=== PATIENT | female | born 1935 | race Caucasian/White ===

== ENCOUNTER → 2023-03-30 10:35 | Outpatient (REF) | payer MEDICARE, BC, SELFPAY ==
[2023-03-30 15:02] LABS: % Basophils 0.1 % (0-2); % Eosinophils 0.2 % (0-6); % Lymphocytes 3.9 % (20.5-51.1); % Monocytes 4.8 % (1.7-9.3); Absolute Immature Granulocytes 0.1 10^3/uL (0-0.05); Absolute Lymphocytes 0.3 10^3/uL (1.2-3.4); Absolute Monocytes 0.4 10^3/uL (0.1-0.6); Absolute Neutrophils 7.3 10^3/uL (1.4-6.5); Hematocrit 37.6 % (37.0-47.0); Hemoglobin 12.7 g/dL (12.0-16.0); Mean Corp Hgb Conc. 33.8 g/dL (33.0-37.0); Mean Corpuscular Hgb 32.4 pg (27.0-31.0); Mean Corpuscular Volume 95.9 fL (81.0-99.0); Mean Platelet Volume 10.2 fL (7.4-10.4); Nucleated Red Blood Cells % 0 %; Platelet Count 217 10^3/uL (130-400); Red Blood Cell Count 3.92 10^6/uL (4.20-5.40); Red Cell Dist. Width 13.4 % (11.5-14.5); White Blood Cell Count 8.1 10^3/uL (4.8-10.8)
[2023-03-30 15:12] LABS: ALT (SGPT) 18 U/L (0-35); AST (SGOT) 29 U/L (14-36); Albumin 3.3 g/dl (3.5-5.0); Alkaline Phosphatase 44 U/L (38-126); Blood Urea Nitrogen 19 mg/dl (7-17); Calcium 8.8 mg/dl (8.4-10.2); Carbon Dioxide 31 mmol/L (22-30); Chloride 100 mmol/L (98-107); Glucose 94 mg/dl (70-99); Potassium 3.9 mmol/L (3.5-5.1); Sodium 133 mmol/L (135-145); Total Bilirubin 0.8 mg/dl (0.2-1.3); Total Protein 5.1 g/dl (6.3-8.2); eGFR > 60.00
== END ==
LOC: HWRAD 10:35
PROVIDERS: ATTENDING PHYSICIAN Family Medicine
DX: J98.6 Disorders of diaphragm (principal); G70.00 Myasthenia gravis without (acute) exacerbation; R73.01 Impaired fasting glucose; E78.2 Mixed hyperlipidemia; R20.2 Paresthesia of skin; R13.13 Dysphagia, pharyngeal phase
CPT/HCPCS: 36415; 71270; 80053; 85025; Q9967

== ENCOUNTER → 2023-05-25 10:54 | Outpatient (REF) | payer MEDICARE, BC, SELFPAY ==
[2023-05-25 15:52] LABS: % Basophils 0.3 % (0-2); % Eosinophils 1.3 % (0-6); % Immature Granulocytes 0.6 % (0-0.5); % Lymphocytes 4.9 % (20.5-51.1); % Monocytes 6.1 % (1.7-9.3); % Neutrophils 86.8 % (42.2-75.2); Absolute Eosinophils 0.1 10^3/uL (0-0.7); Absolute Immature Granulocytes 0.1 10^3/uL (0-0.05); Absolute Lymphocytes 0.5 10^3/uL (1.2-3.4); Absolute Monocytes 0.6 10^3/uL (0.1-0.6); Absolute Neutrophils 8.2 10^3/uL (1.4-6.5); Hematocrit 43.6 % (37.0-47.0); Hemoglobin 14.6 g/dL (12.0-16.0); Mean Corp Hgb Conc. 33.5 g/dL (33.0-37.0); Mean Corpuscular Hgb 31.9 pg (27.0-31.0); Mean Corpuscular Volume 95.2 fL (81.0-99.0); Mean Platelet Volume 9.9 fL (7.4-10.4); Nucleated Red Blood Cells % 0 %; Platelet Count 268 10^3/uL (130-400); Red Blood Cell Count 4.58 10^6/uL (4.20-5.40); Red Cell Dist. Width 13.3 % (11.5-14.5); White Blood Cell Count 9.5 10^3/uL (4.8-10.8)
[2023-05-25 16:03] LABS: ALT (SGPT) 19 U/L (0-35); AST (SGOT) 32 U/L (14-36); Albumin 3.9 g/dl (3.5-5.0); Alkaline Phosphatase 49 U/L (38-126); Blood Urea Nitrogen 20 mg/dl (7-17); Calcium 9.3 mg/dl (8.4-10.2); Carbon Dioxide 32 mmol/L (22-30); Chloride 96 mmol/L (98-107); Glucose 89 mg/dl (70-99); Sodium 136 mmol/L (135-145); Total Bilirubin 0.8 mg/dl (0.2-1.3); eGFR 54.87
[2023-05-25 16:13] LABS: Potassium 3.4 mmol/L (3.5-5.1)
== END ==
LOC: HWWDC 10:54
PROVIDERS: ATTENDING PHYSICIAN Family Medicine
DX: Z12.31 Encounter for screening mammogram for malignant neoplasm of breast (principal); G70.00 Myasthenia gravis without (acute) exacerbation
CPT/HCPCS: 36415; 77063; 77067; 80053; 85025

== ENCOUNTER 2023-07-21 16:38 | Inpatient (IN) | payer MEDICARE, BC, SELFPAY ==
[2023-07-21] VITALS (15 sets, daily range): BP systolic 103–126; BP diastolic 52–82; BMI 21.2
[2023-07-21 10:41] LABS: % Basophils 0.2 % (0-2); % Lymphocytes 1.5 % (20.5-51.1); % Monocytes 5.7 % (1.7-9.3); % Neutrophils 91.6 % (42.2-75.2); Absolute Immature Granulocytes 0.2 10^3/uL (0-0.05); Absolute Lymphocytes 0.2 10^3/uL (1.2-3.4); Absolute Monocytes 0.9 10^3/uL (0.1-0.6); Absolute Neutrophils 15.1 10^3/uL (1.4-6.5); Hematocrit 41.7 % (37.0-47.0); Hemoglobin 13.8 g/dL (12.0-16.0); Mean Corp Hgb Conc. 33.1 g/dL (33.0-37.0); Mean Corpuscular Volume 93.7 fL (81.0-99.0); Mean Platelet Volume 10.1 fL (7.4-10.4); Nucleated Red Blood Cells % 0 %; Platelet Count 208 10^3/uL (130-400); Red Blood Cell Count 4.45 10^6/uL (4.20-5.40); White Blood Cell Count 16.5 10^3/uL (4.8-10.8)
--- NOTE | 2023-07-21 10:48 | ED.GENMED ---
History of Present Illness
<Yuly Ulloa PA-C - Last Filed: 07/21/23 11:46>
General
Chief Complaint: Breathing Problem
Source: patient
Exam Limitations: clinical condition
Time Seen by Provider: 07/21/23 10:32
Travel History
Have you had any contact with someone who has COVID-19?: No
Do you have any symptoms of coronavirus? Fever > 100 degrees, chills, cough, shortness of breath, sore throat, loss of taste or smell, muscle aches, or headache?: No
History of Present Illness
History of Present Illness:
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
here with tachpynea, cough, fever, sore throat, conjucntivitis that started 2 days ago after returning from a cruise to [facility]
she has had inc of her chronic SOB
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
also low energy and wiped out feeling
no double vision, dysphagia, difficulty swallowing
chroinc LE edema on diuretic, no CHF history
no ches tpain
Past History
<Yuly Ulloa PA-C - Last Filed: 07/21/23 11:46>
Past History
ED Past Medical History: COPD, HTN, Hypercholesterolemia, Other (Emphysema, Diverticulitis), Other (Cholelithiasis) and Other (Myasthenia gravis)
ED Past Surgical History: Appendectomy, Gynecological (oophorectomy) and Orthopedic
Social History
Tobacco: Former smoker
Alcohol: Daily (Wine 1-2 glass)
Drug: None
Personal:
Living: with family
Employment: Retired
Family History
Family History: Other (Father with COPD, mother with breast cancer)
Review of Systems
<Yuly Ulloa PA-C - Last Filed: 07/21/23 11:46>
Review of Systems
Allergies reviewed?: Yes
All Other Systems: Not applicable
Phy Exam
<Yuly Ulloa PA-C - Last Filed: 07/21/23 11:46>
Physical Exam
Physical Exam:
GENERAL: Alert tachypneic, conversational dyspnea
EYE: pupils equal and reactive
NECK: Supple
ENT: o/p clr,dry mouth
no trouble swallowing
CARDIAC: Regular rate and rhythm .
LUNGS: crackles b/l bases with faint wheezing with cough, tahcypnea, air hunger, nasal flaring mildly;
ABDOMEN: Soft, without focal tenderness, no r/g, no cvat, normal bowel sounds
NEUROLOGICAL: Alert and oriented, no focal neuro deficits
SKIN: Warm and dry, skin intact.
MUSCULOSKELETAL: moderate b/l symmetric edema, well perfused. neg tiffanie's sign
PSYCH: Normal and appropriate interaction.
Scores
<Yuly Ulloa PA-C - Last Filed: 07/21/23 11:46>
Heart Failure Risk
Heart Failure Risk Score: Not Applicable
Course
<Yuly Ulloa PA-C - Last Filed: 07/21/23 11:46>
Orders/Labs/Results
Orders:
Orders
07/21/23 10:25
NT-proBNP Urgent
Blood Culture Q30M
JEREMIAH Source: Blood/Venous
Specimen Description:
07/21/23 10:26
Electrocardiogram (*1) Urgent
Reason for Study: Other
Other Reason for Exam: Possible Sepsis
Cardiac Monitoring- Treatment ONCE
EKG- Treatment ONCE
07/21/23 10:28
COVID-19 Antigen Urgent
Source: Nasal Swab
Complete Blood Count/With Diff Urgent
Comprehensive Metabolic Panel Urgent
Magnesium Urgent
Comment: ADD ON
Influenza A+B Rapid Molecular Urgent
JEREMIAH Source: Nasal Swab
Specimen Description:
07/21/23 10:47
Electrocardiogram (*1) Stat
Reason for Study: Other
Other Reason for Exam: pneumonia
EKG- Treatment ONCE
CR Chest Portable - 1 View Urgent
Comment:
Reason For Exam: tachypnea, cough; myasthenia
Reason Study Needs to be Portable: Patient Unstable
07/21/23 10:59
Hydrocortisone Sod Succinate [Solu-Cortef] 100 mg IV NOW STA
07/21/23 11:00
Ipratropium/Albuterol Sulfate [Duoneb] 3 ml INH R NOW STA
07/21/23 11:10
Add On- LAB Urgent
Tests Added?: magnesium
Azithromycin 500 mg/250 ml [Zithromax Infusion] 500 mg in 250 ml IV NOW
CefTRIAXone [Rocephin] 1,000 mg IV NOW STA
07/21/23 11:12
Lactic Acid Q4H
Comment: CANCEL 2nd LACTIC ACID IF 1st LACTIC ACID IS LESS THAN 2
Blood Culture Q30M
JEREMIAH Source: Blood/Venous
Specimen Description:
07/21/23 11:22
Sterile Water [Sterile Water For Injection] 10 ml .ROUTE .STK-MED ONE
07/21/23 15:00
Lactic Acid Q4H
Comment: CANCEL 2nd LACTIC ACID IF 1st LACTIC ACID IS LESS THAN 2
Abnormal Lab Results
07/21/23
10:28
WBC 16.5 H 10^3/uL
(4.8-10.8)
Abs Immat Gran (auto) 0.2 H 10^3/uL
(0-0.05)
Absolute Neuts (auto) 15.1 H 10^3/uL
(1.4-6.5)
Absolute Lymphs (auto) 0.2 L 10^3/uL
(1.2-3.4)
Absolute Monos (auto) 0.9 H 10^3/uL
(0.1-0.6)
Immature Gran % 1.0 H %
(0-0.5)
Neutrophils % 91.6 H %
(42.2-75.2)
Lymphocytes % 1.5 L %
(20.5-51.1)
Potassium 3.2 L mmol/L
(3.5-5.1)
Carbon Dioxide 34 H mmol/L
(22-30)
BUN 27 H mg/dl
(7-17)
Glucose 129 H mg/dl
(70-99)
Total Bilirubin 2.0 H mg/dl
(0.2-1.3)
AST 37 H U/L
(14-36)
Total Protein 6.0 L g/dl
(6.3-8.2)
07/21/23 10:28
07/21/23 10:28
Vital Signs
Initial and Last Documented VS:
Initial Vital Signs
Pulse Resp BP Pulse Ox
94 26 122/80 94
07/21/23 10:18 07/21/23 10:18 07/21/23 10:18 07/21/23 10:18
Last Documented Vital Signs
Temp Pulse Resp BP Pulse Ox
99.7 F 84 28 106/55 94
07/21/23 10:25 07/21/23 11:00 07/21/23 11:00 07/21/23 11:00 07/21/23 10:18
<Dinesh Yeh MD - Last Filed: 07/21/23 10:58>
Orders/Labs/Results
Orders:
Orders
07/21/23 10:25
NT-proBNP Urgent
Blood Culture Q30M
JEREMIAH Source: Blood/Venous
Specimen Description:
07/21/23 10:26
Electrocardiogram (*1) Urgent
Reason for Study: Other
Other Reason for Exam: Possible Sepsis
Cardiac Monitoring- Treatment ONCE
EKG- Treatment ONCE
07/21/23 10:28
COVID-19 Antigen Urgent
Source: Nasal Swab
Complete Blood Count/With Diff Urgent
Comprehensive Metabolic Panel Urgent
Magnesium Urgent
Comment: ADD ON
Influenza A+B Rapid Molecular Urgent
JEREMIAH Source: Nasal Swab
Specimen Description:
07/21/23 10:47
Electrocardiogram (*1) Stat
Reason for Study: Other
Other Reason for Exam: pneumonia
EKG- Treatment ONCE
CR Chest Portable - 1 View Urgent
Comment:
Reason For Exam: tachypnea, cough; myasthenia
Reason Study Needs to be Portable: Patient Unstable
07/21/23 10:59
Hydrocortisone Sod Succinate [Solu-Cortef] 100 mg IV NOW STA
07/21/23 11:00
Ipratropium/Albuterol Sulfate [Duoneb] 3 ml INH R NOW STA
07/21/23 11:10
Add On- LAB Urgent
Tests Added?: magnesium
Azithromycin 500 mg/250 ml [Zithromax Infusion] 500 mg in 250 ml IV NOW
CefTRIAXone [Rocephin] 1,000 mg IV NOW STA
07/21/23 11:12
Lactic Acid Q4H
Comment: CANCEL 2nd LACTIC ACID IF 1st LACTIC ACID IS LESS THAN 2
Blood Culture Q30M
JEREMIAH Source: Blood/Venous
Specimen Description:
07/21/23 11:22
Sterile Water [Sterile Water For Injection] 10 ml .ROUTE .ST-MED ONE
07/21/23 15:00
Lactic Acid Q4H
Comment: CANCEL 2nd LACTIC ACID IF 1st LACTIC ACID IS LESS THAN 2
Abnormal Lab Results
07/21/23
10:28
WBC 16.5 H 10^3/uL
(4.8-10.8)
Abs Immat Gran (auto) 0.2 H 10^3/uL
(0-0.05)
Absolute Neuts (auto) 15.1 H 10^3/uL
(1.4-6.5)
Absolute Lymphs (auto) 0.2 L 10^3/uL
(1.2-3.4)
Absolute Monos (auto) 0.9 H 10^3/uL
(0.1-0.6)
Immature Gran % 1.0 H %
(0-0.5)
Neutrophils % 91.6 H %
(42.2-75.2)
Lymphocytes % 1.5 L %
(20.5-51.1)
Potassium 3.2 L mmol/L
(3.5-5.1)
Carbon Dioxide 34 H mmol/L
(22-30)
BUN 27 H mg/dl
(7-17)
Glucose 129 H mg/dl
(70-99)
Total Bilirubin 2.0 H mg/dl
(0.2-1.3)
AST 37 H U/L
(14-36)
Total Protein 6.0 L g/dl
(6.3-8.2)
07/21/23 10:28
07/21/23 10:28
Vital Signs
Initial and Last Documented VS:
Initial Vital Signs
Pulse Resp BP Pulse Ox
94 26 122/80 94
07/21/23 10:18 07/21/23 10:18 07/21/23 10:18 07/21/23 10:18
Last Documented Vital Signs
Temp Pulse Resp BP Pulse Ox
99.7 F 84 28 106/55 94
07/21/23 10:25 07/21/23 11:00 07/21/23 11:00 07/21/23 11:00 07/21/23 10:18
<Yuly Ulloa PA-C - Last Filed: 07/21/23 11:46>
MDM/Problems Addressed
Differential Diagnosis Includes:
pneuamonia, chf, PE, covid, myasthenia
MDM/Problems Addressed:
neeru mojica 88 y/o F with myasthenia on pred 10 mg, imuran; diaphragmatic dysfunction chronically that has gotten worse in 2 days with low grade fever, cough, conjunctiviits after sailing to [facility]; upped her pred to 15 mg yesteday, no improvement;
borderline temp, stable bp, pulse ox 94% on RA with tachypnea and air hunger, conversational dyspnea; some faint crackles and wheezing; b/l peripheral edema
cxr c/w PNA; wbc 16, got a dose of stress steroids and iv abx; covid and flu neg; not stabilized for discharge, requires admission
<Yuly Ulloa PA-C - Last Filed: 07/21/23 11:46>
*Critical Care Note
Total Time (30-74mins, 75-104mins- exclusive of procedures): Not Applicable
ED Attending Note
<Yuly Ulloa PA-C - Last Filed: 07/21/23 11:46>
-
Portions of this chart may have been created with voice recognition software.� Occasional wrong word or��sound alike� substitutions may have occurred due to the inherent limitations of voice recognition software.
<Dinesh Yeh MD - Last Filed: 07/21/23 10:58>
ED Attending Note
Patient seen and examined by attending physician: Yes
I performed the substantive portion of visit, reviewed & personally made and approve the management plan that is documented in note by myself or YOLIS.: Yes
ED Attending Note:
88-year-old female complaining of increased shortness of breath over the last 48 hours. Stable however over this time period. Some cough and congestion. Some nasal URI-like symptoms. Recent cruise. History of myasthenia.
On exam patient is nontoxic but mild to moderately to And mildly short of breath with speaking. However fully awake and alert perfusing well.
Lungs have a few dry bibasilar crackles and some minimal expiratory rhonchi. Heart regular rate and rhythm. Abdomen nontender. She has lower extremity edema bilaterally.
Impression is mild to moderate respiratory distress with hypoxia. Differential would include infectious, related to her myasthenia, PE. Workup in progress
Discharge Plan
Departure
Patient Disposition: Admit
Date of Disposition: 07/21/23
Time of Disposition: 11:21
Admit to: IMU
Presentation/result/management discussed w/ accepting MD/DO: Hospitalist
Condition: Fair
Covid-19: Not Applicable
Discharge Problem:
Pneumonia
Prescriptions:
No Action
pravastatin 20 MG tablet
20 mg PO HS
lutein 20 MG capsule
20 mg PO DAILY
Prolia 60 MG/ML syringe
60 mg SC [id number]
calcium carbonate-vitamin D3 [Oyster Shell Calcium-Vit D3] 500 MG tablet
1 tab PO DAILY
Eylea 2 MG/0.05 ML syringe
1 dose INJ .5-6 WEEKS
Patient Comments:
both eyes
L.acidoph, paracasei,B. lactis 1 EACH capsule
1 tab PO DAILY
docusate sodium 100 MG capsule
100 mg PO BIDPRN PRN (Reason: CONSTIPATION)
acetaminophen 325 MG tablet
650 mg PO Q4HPRN PRN (Reason: mild pain/العلي/temp> 100.4F) Qty: 30 0RF
omega 7-fnw-sfi-fish oil [Fish Oil] 1,000 mg (120 mg-180 mg) Capsule
1 cap PO DAILY Qty: 0
alprazolam [Xanax] 0.25 mg tablet
0.25 mg PO TID PRN (Reason: anxiety) Qty: 10 0RF
Patient Comments:
01/13/2022: last filled 11/30/21, 30 tabs for 10 days from [facility]
omeprazole 20 mg Capsule,Delayed Release(Dr/Ec)
20 mg PO DAILY
cyanocobalamin (vitamin B-12) 1,000 mcg Tablet, Sublingual
1,000 mcg SUBLINGUAL DAILY
melatonin 10 mg Tablet
10 mg PO HS PRN (Reason: insomnia)
ascorbic acid (vitamin C) 500 mg Capsule
500 mg PO DAILY
clonidine 0.3 MG patch weekly
0.3 mg transdermal .QWED
Patient Comments:
takes on wednesdays
Rx Instructions:
HOLD SYSTOLIC BLOOD PRESSURE <130 WHILE ON OXYCODONE
sulfamethoxazole-trimethoprim [Bactrim] 400-80 mg Tablet
1 tab PO MOWEFR Qty: 3 0RF
prednisone 20 mg tablet
40 mg PO DAILY Qty: 60 0RF
multivitamin Tablet
1 tab PO DAILY
hydrochlorothiazide 25 mg tablet
25 mg PO DAILY
azathioprine [Imuran] 50 mg Tablet
150 mg PO HS
Referrals:
Dinesh Quinones DO [Family Provider] -
Interventions
Interventions:
*Risk Screen - Suicide Last Done: 07/21/23 11:02
*General Assessment Last Done: 07/21/23 10:18
*Neglect/Abuse Screening Last Done: 07/21/23 10:18
*ED COVID-19 Vaccine History Last Done: 07/21/23 10:50
Discharge Date and Time
Print Language: ESTONIAN
[2023-07-21 10:57] LABS: COVID-19 Antigen Negative (Negative)
[2023-07-21 11:04] LABS: ALT (SGPT) 20 U/L (0-35); AST (SGOT) 37 U/L (14-36); Albumin 3.6 g/dl (3.5-5.0); Alkaline Phosphatase 39 U/L (38-126); Blood Urea Nitrogen 27 mg/dl (7-17); Calcium 9.3 mg/dl (8.4-10.2); Carbon Dioxide 34 mmol/L (22-30); Chloride 98 mmol/L (98-107); Estimated Creatinine Clearance 48 ml/min; Glucose 129 mg/dl (70-99); Potassium 3.2 mmol/L (3.5-5.1); Sodium 138 mmol/L (135-145); eGFR > 60.00
[2023-07-21] MEDS: SOLU-CORTEF 100 MG IV (11:16)
[2023-07-21] MEDS: DUONEB 3 ML INH (11:16)
[2023-07-21 11:33] LABS: Magnesium 1.9 mg/dl (1.6-2.3)
[2023-07-21] MEDS: ZITHROMAX INFUSION 250 IV (11:34)
[2023-07-21] MEDS: ROCEPHIN 1000 MG IV (11:34)
[2023-07-21 11:58] LABS: Lactic Acid 1.7 mmol/L (0.7-2.0)
[2023-07-21] MEDS: NSS 500 IV (12:04)
[2023-07-21 12:30] LABS: NT-proBNP 1260 pg/ml
--- NOTE | 2023-07-21 15:46 | HPS.HSE ---
Family Physician
-
Family Physician: Dinesh Quinones
Chief Complaint
-
Sore throat, cough and shortness of breath
History of Present Illness
Patient went on a cruise -boarded ship on 07/11. She was feeling healthy with no symptoms prior to getting on the ship. She came back on 07/18. The night before docking back in [place] she was feeling her ears were getting full. On Thursday last
she had sore throat. Thursday last the ears still were clogged up. The sore throat persisted. No energy. Slept all day.
This morning she was feeling too bad. She was having cough. She was developing shortness of breath.
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 She has history of mild COPD but not on oxygen. Not on any inhaler therapy.
She has a history of myasthenia gravis on steroids-prednisone 10 mg and also Imuran. She has been on Imuran for a year and a half. No intercurrent infection.
She had a low-grade fever here which she did not notice at home.
Denies any nausea vomiting or diarrhea.
Medical History
Past Medical History
Past Medical History: Reports COPD, GERD, HTN, Hypercholesterolemia and Other (Myasthenia gravis)
Past Surgical History: Reports Bowel Resection (Colitis) and Orthopedic (Right knee and hip replacement)
Social History
Tobacco: Former Smoker
Alcohol: Occasional
Drug: None
Living: With Family
Family History
Family History: Not pertinent
Allergies / Home Medications
Allergies reflects when Allergies were last updated in [employer].
Home Medications with original date entered in [employer]
Allergy/Medication List:
Allergies
Allergy/AdvReac Type Severity Reaction Status Date / Time
No Known Allergies Allergy Verified 07/21/23 10:22
Home Medications
pravastatin 20 mg tablet 20 mg PO HS High cholesterol 05/27/16
denosumab 60 mg/mL subcutaneous syringe (Prolia) 60 mg SC [id number] bone health 04/05/18
lutein 20 mg capsule 20 mg PO DAILY Eye condition 04/05/18
calcium carbonate 500 mg-vitamin D3 5 mcg (200 unit) tablet (Oyster Shell Calcium-Vitamin D3) 1 tab PO DAILY Supplement 07/03/18
omega 5-fru-clj-fish oil 1,000 mg (120 mg-180 mg) capsule (Fish Oil) 1 cap PO DAILY Supplement ##0 06/29/21
ascorbic acid (vitamin C) 500 mg capsule 500 mg PO DAILY Supplement 01/06/22
clonidine 0.3 mg/24 hr weekly transdermal patch 0.3 mg transdermal WE Blood pressure 01/06/22
cyanocobalamin (vitamin B-12) 1,000 mcg sublingual tablet 1,000 mcg sublingual DAILY Supplement 01/06/22
melatonin 10 mg tablet 10 mg PO HS insomnia 01/06/22
omeprazole 20 mg capsule,delayed release 40 mg PO DAILY Gastrointestinal issue 01/06/22
hydrochlorothiazide 25 mg tablet 25 mg PO DAILY Blood pressure 01/13/22
azathioprine 50 mg tablet (Imuran) 75 mg PO HS Autoimmune Disorder 04/14/22
Lactobac no.2-Bifidobac no.1-S. thermo 112.5 billion cell capsule (Visbiome) 1 cap PO DAILY Gastrointestinal Issue 07/21/23
famotidine 40 mg tablet 40 mg PO HS Gastrointestinal Issue 07/21/23
prednisone 20 mg tablet 10 mg PO DAILY Anti-inflammatory 07/21/23
ranibizumab 0.3 mg/0.05 mL intravitreal syringe (Lucentis) 0.3 mg intravitreal Q60D Eye Condition 07/21/23
therapeutic multivitamin 1 tab PO DAILY Supplement 07/21/23
Review of Systems
-
A 12 point ROS was completed and negative except as noted: Yes
Physical Exam
Vital Signs
Vital Signs
Temp Pulse Resp BP Pulse Ox
99.7 F 87 27 107/57 99
07/21/23 10:25 07/21/23 13:15 07/21/23 13:15 07/21/23 13:00 07/21/23 11:58
Physical Exam
General: No Apparent Distress
HEENT: Moist mucous membranes
Respiratory: Clear; No Wheezes, Crackles or Accessory Resp Muscle Use (but visibly SOB - pt says it is combination of pneumonia and her diaphragm paralysis)
Cardiac: S1/S2 and Regular Rhythm
GI: Soft
Musculoskeletal: No Edema
Neuro: AO x 3 and No Motor Deficits
Psych: Calm
Laboratory Results
-
07/21/23 10:28
07/21/23 10:28
Laboratory Results
Lactic Acid Cancelled 07/21/23 15:00
Total Bilirubin 2.0 mg/dl (0.2-1.3) H 07/21/23 10:28
AST 37 U/L (14-36) H 07/21/23 10:28
ALT 20 U/L (0-35) 07/21/23 10:28
Alkaline Phosphatase 39 U/L (38-126) 07/21/23 10:28
Data Reviewed
-
Diagnostic Radiology: Report Reviewed by me (cxr)
Lab Data: Labs Reviewed by me
Impression/Plan
-
Pneumonia-patient returns back to for a cruise vacation with sore throat, cough and shortness of breath. She has a left mid zone opacity concerning for pneumonia. Unclear if it is bacterial or viral. So far negative for COVID and influenza. She
is immuno suppressed with Imuran. Cover her broadly with antibiotics pending culture data. Check streptococcal and Legionella antigen. Check RSV antigen. Follow clinical response closely. Hold Imuran.
Check procalcitonin.
Myasthenia gravis -no recent flare. No recent symptoms of exacerbation. Denies any double vision issues, weakness, speech or swallow impairment; in fact was feeling good to go on a cruise last week. Hold prednisone and cover with stress dose
steroids. Hold Imuran.
HTN - cw meds
Hypokalemia -replete K
GERD cw home meds
Full code
[2023-07-21] MEDS: KCL 40 MEQ PO (16:01)
[2023-07-21] MEDS: LOVENOX 40 MG SC (19:57)
[2023-07-21] MEDS: VIBRAMYCIN 100 MG PO (19:57)
[2023-07-21] MEDS: MUCINEX 600 MG PO (19:57)
--- NOTE | 2023-07-21 20:00 | PTCARENOTE ---
Rn flow greeter- Dario texted Rosaura Shaw for order for Imuran that patient takes for Myathenia gravis.
[2023-07-21] MEDS: SOLU-CORTEF 50 MG IV (20:14)
[2023-07-21 21:24] LABS: Procalcitonin 1.08 ng/ml (0.0-0.25)
[2023-07-21] MEDS: PEPCID 20 MG PO (22:40)
[2023-07-21] MEDS: PRAVACHOL 20 MG PO (22:40)
[2023-07-21] MEDS: MELATONIN 10 MG PO (22:40)
[2023-07-22] MEDS: SOLU-CORTEF 50 MG IV ×2 (04:48→11:08)
[2023-07-22 05:49] LABS: Hematocrit 35.7 % (37.0-47.0); Hemoglobin 12.3 g/dL (12.0-16.0); Mean Corp Hgb Conc. 34.5 g/dL (33.0-37.0); Mean Corpuscular Hgb 31.4 pg (27.0-31.0); Mean Corpuscular Volume 91.1 fL (81.0-99.0); Mean Platelet Volume 10.2 fL (7.4-10.4); Platelet Count 198 10^3/uL (130-400); Red Blood Cell Count 3.92 10^6/uL (4.20-5.40); White Blood Cell Count 14.1 10^3/uL (4.8-10.8)
[2023-07-22 06:15] LABS: Blood Urea Nitrogen 25 mg/dl (7-17); Calcium 8.8 mg/dl (8.4-10.2); Carbon Dioxide 32 mmol/L (22-30); Chloride 103 mmol/L (98-107); Estimated Creatinine Clearance 42 ml/min; Glucose 116 mg/dl (70-99); Potassium 3.5 mmol/L (3.5-5.1); Sodium 140 mmol/L (135-145); eGFR > 60.00
[2023-07-22 07:15] VITALS: BP 121/70
[2023-07-22] MEDS: VITAMIN C 500 MG PO (07:54)
[2023-07-22] MEDS: OSCAL 500 + D 500 MG PO (07:54)
[2023-07-22] MEDS: VITAMIN B-12 1000 MCG PO (07:54)
[2023-07-22] MEDS: VISBIOME 1 CAP PO (07:54)
[2023-07-22] MEDS: MUCINEX 600 MG PO ×2 (07:54→19:52)
[2023-07-22] MEDS: VIBRAMYCIN 100 MG PO ×2 (07:54→19:52)
[2023-07-22] MEDS: ORETIC 25 MG PO (07:54)
[2023-07-22] MEDS: PROTONIX 40 MG PO (07:54)
[2023-07-22] MEDS: CATAPRES-TTS-3 0.299999999999999989 MG TRANSDERM (07:55)
[2023-07-22 10:06] VITALS: PULSE 73; O2SAT 92
--- NOTE | 2023-07-22 10:11 | PN.CDI ---
CDI
- -
CDI:
Physician Documentation Request
Admit Date: 07/21/23 16:38
Dear Doctor Maury,
Patient admitted with pneumonia.
07/20 Nursing skin assessment, 'Stage 1 bilateral buttocks pressure injury, POA.'
Physician documentation of the type and location of wounds is required for compliant documentation. Based on the above clinical findings and your assessment, please provide the following in your progress note:
Type (etiology) of ulcer/wound:
- Pressure (decubitus) ulcer
- Other
- Unable to determine
If a pressure ulcer, please also include the stage* of the ulcer:
- Stage 1 - Skin intact, non-blanchable redness
- Stage 2 - Partial thickness loss of dermis, includes intact or open blister
- Stage 3 - Full thickness tissue not including bone, tendon or muscle
- Stage 4 - Full thickness tissue loss, including exposed bone, tendon or muscle
- Unstageable - Full thickness loss in which the base of the ulcer is covered by slough (yellow, love, stovall, green or brown) and/or eschar (love, brown or black) in the wound bed.
- Unable to determine
Use of terms such as suspected, likely, concern for, or probable (associated with a specific diagnosis that is being evaluated, monitored, or treated as if it exists) are acceptable and can be coded in the inpatient setting, when documented at the
time of discharge.
Thank you,
Nadia FERGUSON,RN,CCDS
CDI Specialist
Available via [place] text
Please use your independent medical judgment in providing your response.
*Source: National Pressure Ulcer Advisory Panel (NPUAP)
--- NOTE | 2023-07-22 11:04 | PTOTSP ---
SPEECH THERAPY SWALLOW EVALUATION:
Patient exhibits grossly functional oropharyngeal swallow at this time. Patient remains at risk for aspiration and related complications given predisposing dysphagia risk factor of MG, though patient reported it is well-controlled at this time.
Patient currently with pneumonia, with stable respiratory status at this time. Recommend continue Regular texture diet, thin liquids. Medications whole with liquid, one at a time. Recommend aspiration precautions including: Maintain 90 degrees
upright sitting position when eating or drinking; Small sips/bites; Slow rate of intake; Alternate textures/intersperse liquids; Rest breaks during meals (as needed especially during MG flares); Moisten foods with gravies/sauces, jellies/jams, etc.
(as needed); Select soft textures; Remain upright for at least 30 minutes after meals. Speech therapy to follow, monitor diet tolerance and modify as appropriate, monitor CXR and labs, determine indication for repeat VSE if indicated, and provide
continued education regarding aspiration risks and precautions.
RECOMMEND:
1) Regular texture diet, thin liquids
2) Medications whole with liquid, one at a time
3) Aspiration precautions including: Maintain 90 degrees upright sitting position when eating or drinking; Small sips/bites; Slow rate of intake; Alternate textures/intersperse liquids; Rest breaks during meals (as needed especially during MG
flares); Moisten foods with gravies/sauces, jellies/jams, etc. (as needed); Select soft textures; Remain upright for at least 30 minutes after meals
4) Speech therapy to follow
[2023-07-22] MEDS: ROCEPHIN 1000 MG IV (11:07)
[2023-07-22] MEDS: STERILE WATER FOR INJECTION 10 ML IV (11:07)
--- NOTE | 2023-07-22 13:21 | CM ---
Patient seen bedside, initial assessment completed. Patient resides independently in a condo, elevator to second floor. Patient ambulates in home with no devices, outside has a cane or walker if needed. Patient reports history with [facility]
outpatient therapy, and [facility] therapy, denies SNF. Patient confirms PCP Dinesh Quinones, pharmacy [facility], confirms prescription coverage. Patient denies food insecurities at home. CM will continue to follow for discharge planning needs,
per PT notes, recommending outpatient therapy, will discuss with patient.
Plan; home no needs vs script for outpatient therapy.
--- NOTE | 2023-07-22 14:19 | W.PN.HOSP.TC ---
Addendum entered and electronically signed by Walt Mendiola MD 07/23/23 16:42:
Stage 1 bilateral buttocks pressure injury, POA.'
Original Note:
Today's Communication/Plan
-
If continued improvement today and the culture negative will DC in a.m.
Assessment / Plan
Assessment / Plan
Pneumonia-patient returns back to for a cruise vacation with sore throat, cough and shortness of breath. She has a left mid zone opacity concerning for pneumonia. Unclear if it is bacterial or viral ,suspect former. So far negative for COVID and
influenza. She is immuno suppressed with Imuran. Cover her broadly with antibiotics pending culture data. Neg streptococcal and Legionella antigen. Neg RSV antigen. Procal is up.
Patient feeling improved already. Continue with current antibiotic regimen.
Continue to hold Imuran.
Myasthenia gravis -no recent flare. No recent symptoms of exacerbation. Denies any double vision issues, weakness, speech or swallow impairment; in fact was feeling good to go on a cruise last week. Hold prednisone and cover with stress dose
steroids -decrease to 25mg tid and switch to her home dose in am if continued improvement. Hold Imuran.
HTN - cw meds
GERD cw home meds
Full code
Anticipated Discharge: Within 24 hours
Subjective/Interval History
-
Date of Service: July 22, 2023
already feeling improved with regards to breathing.
No fever or chills.
Objective Data
-
Labs:
Laboratory Results
07/22/23
05:26
WBC 14.1 H
Hgb 12.3
Hct 35.7 L
Plt Count 198
Sodium 140
Potassium 3.5
Chloride 103
Carbon Dioxide 32 H
BUN 25 H
Creatinine 0.8
Glucose 116 H
Calcium 8.8
Vital Signs:
Vital Signs
Temp Pulse Resp BP Pulse Ox
97.7 F 78 20 121/70 92
07/22/23 07:15 07/22/23 07:54 07/22/23 07:15 07/22/23 07:54 07/22/23 08:10
Review of Systems
-
EENT: Denies Sore Throat
Respiratory: Reports Cough
Abdomen/GI: Denies Abdominal Pain, Nausea or Vomiting
Neuro: Denies Dizzy
Physical Exam
-
General: Comfortable
Respiratory: Crackles (few in left basal area) and Non Labored Respirations; Negative Wheezes or Accessory Resp Muscle Use
Cardiac: Regular Rhythm, S1/S2 and Murmur
Neuro: AO x 3
Data Reviewed
-
Labs: Labs Reviewed by me
[2023-07-22 15:45] VITALS: BP 139/70
[2023-07-22] MEDS: LOVENOX 40 MG SC (17:38)
[2023-07-22] MEDS: SOLU-CORTEF 25 MG IV (19:51)
[2023-07-22] MEDS: PEPCID 20 MG PO (21:24)
[2023-07-22] MEDS: MELATONIN 10 MG PO (21:24)
[2023-07-22] MEDS: PRAVACHOL 20 MG PO (21:24)
[2023-07-22 23:56] VITALS: BP 130/82
[2023-07-23] MEDS: SOLU-CORTEF 25 MG IV (04:31)
[2023-07-23 05:37] LABS: Hemoglobin 12.5 g/dL (12.0-16.0); Mean Corp Hgb Conc. 34.7 g/dL (33.0-37.0); Mean Corpuscular Hgb 31.4 pg (27.0-31.0); Mean Corpuscular Volume 90.5 fL (81.0-99.0); Mean Platelet Volume 10.1 fL (7.4-10.4); Platelet Count 218 10^3/uL (130-400); Red Blood Cell Count 3.98 10^6/uL (4.20-5.40); Red Cell Dist. Width 13.8 % (11.5-14.5); White Blood Cell Count 12.4 10^3/uL (4.8-10.8)
[2023-07-23 07:45] VITALS: BP 124/71
[2023-07-23] MEDS: VITAMIN C 500 MG PO (09:18)
[2023-07-23] MEDS: OSCAL 500 + D 500 MG PO (09:18)
[2023-07-23] MEDS: VISBIOME 1 CAP PO (09:18)
[2023-07-23] MEDS: MUCINEX 600 MG PO ×2 (09:18→20:02)
[2023-07-23] MEDS: ORETIC 25 MG PO (09:18)
[2023-07-23] MEDS: VIBRAMYCIN 100 MG PO (09:19)
[2023-07-23] MEDS: VITAMIN B-12 1000 MCG PO (09:20)
[2023-07-23] MEDS: PROTONIX 40 MG PO (09:20)
--- NOTE | 2023-07-23 10:37 | W.PN.HOSP.TC ---
Addendum entered and electronically signed by Casa Barbosa MD 07/23/23 14:57:
Patient 1 out of 2 blood cultures taken on 20 July growing haemophilus influenza and given her immunocompromise state from Imuran we will consult infectious disease repeat blood cultures continue ceftriaxone and doxycycline
Addendum entered and electronically signed by Casa Barbosa MD 07/23/23 13:51:
Yes patient met criteria for sepsis
Original Note:
Today's Communication/Plan
-
Suspect one of the 2 blood cultures is a contaminant will await a.m. result
Continue to on present course of antibiotic
Monitor CBC and leukocytosis
Add incentive spirometer and benzonatate for cough
Oral prednisone taper
Assessment / Plan
Assessment / Plan
Pneumonia-patient returns back to for a cruise vacation with sore throat, cough and shortness of breath. She has a left mid zone opacity concerning for pneumonia. Unclear if it is bacterial or viral ,suspect former. So far negative for COVID and
influenza. She is immuno suppressed with Imuran. Cover her broadly with antibiotics pending culture data. Neg streptococcal and Legionella antigen. Neg RSV antigen. Procal is up. 1 out of 2 blood cultures reported positive possibly
contaminant will await finalization
Patient feeling improved already. Continue with current antibiotic regimen.
Continue to hold Imuran. Add incentive spirometer and benzonatate for cough
Myasthenia gravis -no recent flare. No recent symptoms of exacerbation. Denies any double vision issues, weakness, speech or swallow impairment; in fact was feeling good to go on a cruise last week. Hold prednisone and cover with stress dose
steroids -decrease to 25mg tid and switch to her home dose in am if continued improvement. Hold Imuran. Bruising of lower extremities may be in relation to her chronic immunosuppression/think we can transition to an oral steroid taper at this point
HTN - cw meds
GERD cw home meds
Full code
Anticipated Discharge: Within 24 hours
Subjective/Interval History
-
Date of Service: July 23, 2023
Send nonproductive cough persists she occasionally has a stitch in her left-sided. Chest when she takes deep breath she blames on her known myasthenia
Objective Data
-
Labs:
Laboratory Results
07/23/23
05:22
WBC 12.4 H
Hgb 12.5
Hct 36.0 L
Plt Count 218
Vital Signs:
Vital Signs
Temp Pulse Resp BP Pulse Ox
98.3 F 78 24 124/71 92
07/23/23 07:45 07/23/23 09:18 07/23/23 07:45 07/23/23 09:18 07/23/23 07:45
I&O
07/22/23 07/23/23 07/24/23
06:59 06:59 06:59
Intake Total 1140 / 1140
Balance 1140 / 1140
Review of Systems
-
History Source: Patient
Constitutional: Reports No Symptoms; Denies Fever
Respiratory: Reports Cough
Cardiac: Reports No Symptoms
Abdomen/GI: Reports No Symptoms
Physical Exam
-
General: No Apparent Distress
HEENT: Normocephalic
Respiratory: Crackles and Decreased Breath Sounds
Cardiac: Regular Rhythm and Murmur
Psych: Calm
Data Reviewed
-
Total Time Spent with Patient (in minutes): 45
Labs: Labs Reviewed by me (White count trending down/ANC depressed but appears to be chronic)
--- NOTE | 2023-07-23 10:49 | PN.CDI ---
CDI
- -
CDI:
Physician Documentation Request
Admit Date: 07/21/23 16:38
Dear Doctor Familia,
Patient admitted with pneumonia.
On admission, WBC 16.5 and RR > 20.
6/ Procalcitonin 1.08
Patient received IV Azithromycin, IV Rocephin and po Vibramycin.
Please clarify which of the following most accurately describes the status of the patient's infection:
Sepsis, POA
Pneumonia only
Other
Sepsis
- Systemic manifestations of infection, with 2 or more SIRS criteria which include:
- Fever >100.4 degrees F or hypothermia < 96.8 degrees F
- Leukocytosis - WBC > 12,000 or leukopenia - WBC < 4,000 or > 10% bands
- Tachycardia > 90 beats per minute
- Tachypnea - RR > 20 breaths per minute or PaCO2 , 32mmHg
Source: Merck Manual 2013
- Indicate the known or suspected organism
- Indicate the known or suspected underlying infection, such as pneumonia
Localized Infection Only, Without Systemic Illness
- indicate the site/source, such as pneumonia
Other
Use of terms such as suspected, likely, concern for, or probable (associated with a specific diagnosis that is being evaluated, monitored, or treated as if it exists) are acceptable and can be coded in the inpatient setting, when documented at the
time of discharge.
Thank you,
Nadia POPN,RN,CCDS
CDI Specialist
Available via [facility] text
Please use your independent medical judgment in providing your response.
--- NOTE | 2023-07-23 11:13 | CM ---
Patient seen in chair, patient hopeful for discharge today. CM offered outpatient therapy to patient, patient declines script for outpatient PT at this time. Patient reports she does have transportation for when she is clear for discharge. IMM
reviewed, signed, placed in chart. CM will continue to follow for discharge planning needs.
Plan; home with no needs when stable.
[2023-07-23] MEDS: STERILE WATER FOR INJECTION 10 ML IV (12:21)
[2023-07-23] MEDS: DELTASONE 30 MG PO (12:21)
[2023-07-23] MEDS: ROCEPHIN 1000 MG IV (12:21)
[2023-07-23] MEDS: TESSALON PERLES 100 MG PO ×2 (12:28→21:12)
[2023-07-23 15:26] VITALS: BP 170/80
--- NOTE | 2023-07-23 15:43 | CON.ID ---
Consultation
-
Date/Time Consultation Requested: 07/23/2023 1454
Date/Time Consultation Performed: 07/23/2023 1540
Requesting Provider: Dr. Barbosa
Performing Provider: Dr. Byrne
Reason for Consultation: Bacteremia
Chief Complaint / Past History
History of Present Illness
Josh Maya is an 88-year-old female being evaluated at the request of Dr. Barbosa in regards to bacteremia with H influenza. History is obtained from chart review, along with patient interview.
According to reviewed history the patient was recently on a cruise, boarding on 07/11 and returning on 07/18. She reported that she was feeling well at the time of embarking, but the night before returning she felt that her ears were 'getting full'.
The next day she developed pharyngitis with a sore throat. On the day of admission she felt quite ill with associated cough and some shortness of breath. The symptomatology prompted evaluation at the emergency room here at [facility].
Blood cultures obtained at the time of admission are now positive for haemophilus influenza, and Infectious Diseases is asked to comment on further antimicrobial therapy.
The patient has additional history of myasthenia gravis, and is maintained on prednisone 10 mg a day and Imuran.
Past History
Additional Past Medical History:
COPD
GERD
HTN
Dyslipidemia
Myasthenia gravis
Additional Past Surgical History:
Bowel resection
Allergy History:
No Known Allergies Allergy (Verified 07/21/23 10:22)
Medications Reviewed: Yes
Current Antibiotics:
Ceftriaxone (day #3)
Doxycycline (day #3)
Social History
Tobacco: Former Smoker
Alcohol: Daily (wine)
Drug: None
Family History
Family History: Not Pertinent
Review of Systems
Vital Signs
Temp Pulse Resp BP Pulse Ox
97.4 F 83 18 170/80 96
07/23/23 15:26 07/23/23 15:26 07/23/23 15:26 07/23/23 15:26 07/23/23 15:26
Physical Exam
Physical Exam
Constitutional: No Acute Distress, Comfortable and Non-toxic
Eyes: No Conjunctival Hemorrhage and Sclera Anicteric
Oral: No Thrush and No Ulcers
Cardiovascular: Regular Rate and S1/S2; Negative S3/S4
Pulmonary: Clear and Non Labored; Negative Wheezes, Rales or Rhonchi
Gastrointestinal: Soft, Non Tender, Non Distended and Normal Bowel Sounds
Neurological: Alert
Psychological: Calm
Lab / Diagnostic Study Results
07/23/23 05:22
07/22/23 05:26
Abs Immat Gran (auto) 0.2 10^3/uL (0-0.05) H 07/21/23 10:28
Absolute Neuts (auto) 15.1 10^3/uL (1.4-6.5) H 07/21/23 10:28
Absolute Lymphs (auto) 0.2 10^3/uL (1.2-3.4) L 07/21/23 10:28
Absolute Monos (auto) 0.9 10^3/uL (0.1-0.6) H 07/21/23 10:28
Absolute Basos (auto) 0.0 10^3/uL (0-0.2) 07/21/23 10:28
Immature Gran % 1.0 % (0-0.5) H 07/21/23 10:28
Neutrophils % 91.6 % (42.2-75.2) H 07/21/23 10:28
Lymphocytes % 1.5 % (20.5-51.1) L 07/21/23 10:28
Monocytes % 5.7 % (1.7-9.3) 07/21/23 10:28
Eosinophils % 0.0 % (0-6) 07/21/23 10:28
Basophils % 0.2 % (0-2) 07/21/23 10:28
Lactic Acid Cancelled 07/21/23 15:00
Procalcitonin 1.08 ng/ml (0.0-0.25) H 07/21/23 20:43
Microbiology Results
Micro:
07/23/23 15:31 Blood Culture - Pending
Blood/Venous
07/23/23 15:07 Blood Culture - Pending
Blood/Venous
07/21/23 10:25 Blood Culture - Preliminary
Blood/Venous Haemophilus influenzae
Gram Stain - Preliminary
07/21/23 11:12 Blood Culture - Preliminary
Blood/Venous No Growth in 48 hours- Final report to follow
07/22/23 06:40 Respiratory Culture - Final
Sputum Gram Stain - Final
07/22/23 06:13 Legionella Urinary Antigen - Final
Urine Negative for Legionella pneumophila Serogroup 1 antigen.
A negative result does not rule out the possiblity of
Legionella infection due to other serogroups or species of
Legionella. Clinical correlation is recommended.
Streptococcus pneumoniae Antigen (M - Final
Negative for Streptococcus pneumoniae antigen.
A negative result does not exclude infection with
Streptococcus pneumoniae. Clinical correlation is
recommended.
07/21/23 20:44 Respiratory Syncytial Virus Culture - Final
Nasal Swab Negative for Respiratory Syncytial Virus.
A false negative result may be obtained with a specimen
collected early in the acute phase. If symptoms persist, a
new specimen should be tested.
07/21/23 10:28 Influenza Types A & B (STEPHAN) - Final
Nasal Swab Negative for Influenza A & B, NAAT
Negative results must be combined with clinical observations
and patient history.
Nucleic Acid Amplification test (NAAT)performed on the
[employer] platform.
Imaging:
07/21/2023 CXR (portable): Ill-defined opacity within the left midlung suspicious for developing pneumonia. No significant pleural effusions or pneumothorax.
Assessment / Plan
H influenza bacteremia
Left midlung PNA (CAP)
Leukocytosis
Elevated procalcitonin
Myasthenia gravis; on chronic prednisone and Imuran
COPD
GERD
HTN
Dyslipidemia
Recommendations:
Continue ceftriaxone.
Repeat blood cultures have been obtained; await further data to assess clearance.
If repeat blood cultures remain negative and white count improves, can likely transition to an oral regimen of cefdinir, to complete a 14-day course of therapy.
Further doxycycline can be discontinued at this time.
Monitor white count and temperature curve.
Patient noted to be on probiotics. Would discontinue given underlying immunosuppression.
[2023-07-23 15:50] VITALS: BP 170/83; PULSE 83
[2023-07-23] MEDS: LOVENOX 40 MG SC (18:14)
[2023-07-23] MEDS: MELATONIN 10 MG PO (21:12)
[2023-07-23] MEDS: PRAVACHOL 20 MG PO (21:12)
[2023-07-23] MEDS: PEPCID 20 MG PO (21:13)
[2023-07-23 21:22] VITALS: BP 170/95; BP 172/90
[2023-07-23 23:39] VITALS: BP 164/84
--- NOTE | 2023-07-24 03:04 | PTCARENOTE ---
Pts BP high 170/95 HR 89- manual checked 172/90, house INFORMATION ENGINEER notified order to recheck. Recheck 164/84- house INFORMATION ENGINEER aware no new orders at this time.
[2023-07-24 07:35] VITALS: BP 161/88
[2023-07-24 08:37] LABS: Hematocrit 45.5 % (37.0-47.0); Hemoglobin 15.5 g/dL (12.0-16.0); Mean Corp Hgb Conc. 34.1 g/dL (33.0-37.0); Mean Corpuscular Hgb 31.4 pg (27.0-31.0); Mean Corpuscular Volume 92.1 fL (81.0-99.0); Platelet Count 276 10^3/uL (130-400); Red Blood Cell Count 4.94 10^6/uL (4.20-5.40); Red Cell Dist. Width 13.6 % (11.5-14.5); White Blood Cell Count 14.3 10^3/uL (4.8-10.8)
[2023-07-24] MEDS: DELTASONE 30 MG PO (09:31)
[2023-07-24] MEDS: ORETIC 25 MG PO (09:32)
[2023-07-24] MEDS: PROTONIX 40 MG PO (09:32)
[2023-07-24] MEDS: MUCINEX 600 MG PO ×2 (09:32→20:49)
[2023-07-24] MEDS: VITAMIN C 500 MG PO (09:32)
[2023-07-24] MEDS: OSCAL 500 + D 500 MG PO (09:32)
--- NOTE | 2023-07-24 10:37 | W.PN.HOSP.TC ---
Today's Communication/Plan
-
Will need to await follow-up blood cultures for clearance
Continue ceftriaxone as per ID
Continue steroid taper to usual 10 mg dosage
Assessment / Plan
Assessment / Plan
Pneumonia-patient returns back to for a cruise vacation with sore throat, cough and shortness of breath. She has a left mid zone opacity concerning for pneumonia. Unclear if it is bacterial or viral ,suspect former. So far negative for COVID and
influenza. She is immuno suppressed with Imuran. Cover her broadly with antibiotics pending culture data. Neg streptococcal and Legionella antigen. Neg RSV antigen. Procal is up. 1 out of 2 blood cultures reported positive grew haemophilus
influenzae
Follow-up blood cultures still pending for clearance/mild uptake in leukocytosis possibly related to stress dose steroids now on steroid taper she is steroid-dependent.
-Appreciate infectious disease input
Patient feeling improved already. Continue with current antibiotic regimen. Ceftriaxone/doxycycline has now been discontinued
Continue to hold Imuran. Add incentive spirometer and benzonatate for cough
Myasthenia gravis -no recent flare. No recent symptoms of exacerbation. Denies any double vision issues, weakness, speech or swallow impairment; in fact was feeling good to go on a cruise last week. Hold prednisone and cover with stress dose
steroids -decrease to 25mg tid and switch to her home dose in am if continued improvement. Hold Imuran. Bruising of lower extremities may be in relation to her chronic immunosuppression/think we can transition to an oral steroid taper at this point
HTN - cw meds
GERD cw home meds
Full code
Anticipated Discharge: Within 24 hours
Subjective/Interval History
-
Date of Service: July 24, 2023
Patient feels well she has minimal cough nonproductive no chest pain using incentive spirometer which has helped we discussed the findings on the
Objective Data
-
Labs:
Laboratory Results
07/24/23
08:13
WBC 14.3 H
Hgb 15.5 D
Hct 45.5
Plt Count 276 D
Vital Signs:
Vital Signs
Temp Pulse Resp BP Pulse Ox
98.2 F 96 18 161/88 92
07/24/23 07:35 07/24/23 09:32 07/24/23 07:35 07/24/23 09:32 07/24/23 07:35
I&O
07/23/23 07/24/23 07/25/23
06:59 06:59 06:59
Intake Total 1140 / 1140 360 / 360
Balance 1140 / 1140 360 / 360
Review of Systems
-
History Source: Patient
EENT: Reports No Symptoms Reported
Respiratory: Reports No Symptoms
Cardiac: Reports No Symptoms
Abdomen/GI: Reports No Symptoms
Physical Exam
-
General: Well Developed
HEENT: Normocephalic
Respiratory: Clear to Auscultation
Cardiac: Regular Rhythm
GI: Soft and Nontender
Neuro: Awake and Alert
Psych: Calm
Data Reviewed
-
Total Time Spent with Patient (in minutes): 56
Labs: Labs Reviewed by me (White count slightly elevated up to 14 from 12 yesterday)
[2023-07-24] MEDS: VITAMIN B-12 1000 MCG PO (10:59)
[2023-07-24] MEDS: STERILE WATER FOR INJECTION 10 ML IV (12:03)
[2023-07-24] MEDS: ROCEPHIN 1000 MG IV (12:03)
--- NOTE | 2023-07-24 12:24 | W.PN.ID1 ---
Date of Service
Date of Service: July 24, 2023
Today's Communication
Continue ceftriaxone (d#4)
Assessment / Plan
H influenza bacteremia
Left midlung PNA (CAP)
Leukocytosis
Elevated procalcitonin
Myasthenia gravis; on chronic prednisone and Imuran
COPD
GERD
HTN
Dyslipidemia
Recommendations:
Continue ceftriaxone (d#4) for today
Repeat blood cultures have been obtained; await further data to assess clearance.
If repeat blood cultures remain negative and white count improves, can likely transition to an oral regimen of cefdinir 300mh BID through 08/04/2023.
����������������������������������������������������������
Chief Complaint
-: Pneumonia and Bacteremia
Subjective / Review of Systems
Review of Systems: No Fever, No Chills and Cough
Vital Signs / Physical Exam
Vital Signs
Vital Signs
Temp Pulse Resp BP Pulse Ox
98.2 F 96 18 161/88 92
07/24/23 07:35 07/24/23 09:32 07/24/23 07:35 07/24/23 09:32 07/24/23 07:35
Physical Exam
Constitutional: No Acute Distress, Comfortable and Non-toxic
Eyes: No Conjunctival Hemorrhage and Sclera Anicteric
Cardiovascular: S1/S2; Negative S3/S4
Pulmonary: Non Labored; Negative Wheezes or Rales
Gastrointestinal: Soft and Non Tender
Skin: Negative Rash or Jaundice
Neurological: Awake and Alert
Psychological: Calm
Objective Data
Lab Data
Lab Results
07/24/23 08:13
07/22/23 05:26
Estimated Creat Clear 42 ml/min 07/22/23 05:26
Lactic Acid Cancelled 07/21/23 15:00
Total Bilirubin 2.0 mg/dl (0.2-1.3) H 07/21/23 10:28
AST 37 U/L (14-36) H 07/21/23 10:28
ALT 20 U/L (0-35) 07/21/23 10:28
Alkaline Phosphatase 39 U/L (38-126) 07/21/23 10:28
Most recent labs reviewed.
Micro Results:
07/21/23 11:12 Blood Culture - Preliminary
Blood/Venous No Growth in 72 hours- Final report to follow
07/23/23 15:31 Blood Culture - Pending
Blood/Venous
07/23/23 15:07 Blood Culture - Pending
Blood/Venous
07/21/23 10:25 Blood Culture - Preliminary
Blood/Venous Haemophilus influenzae
Gram Stain - Preliminary
07/22/23 06:40 Respiratory Culture - Final
Sputum Gram Stain - Final
07/22/23 06:13 Legionella Urinary Antigen - Final
Urine Negative for Legionella pneumophila Serogroup 1 antigen.
A negative result does not rule out the possiblity of
Legionella infection due to other serogroups or species of
Legionella. Clinical correlation is recommended.
Streptococcus pneumoniae Antigen (M - Final
Negative for Streptococcus pneumoniae antigen.
A negative result does not exclude infection with
Streptococcus pneumoniae. Clinical correlation is
recommended.
07/21/23 20:44 Respiratory Syncytial Virus Culture - Final
Nasal Swab Negative for Respiratory Syncytial Virus.
A false negative result may be obtained with a specimen
collected early in the acute phase. If symptoms persist, a
new specimen should be tested.
07/21/23 10:28 Influenza Types A & B (STEPHAN) - Final
Nasal Swab Negative for Influenza A & B, NAAT
Negative results must be combined with clinical observations
and patient history.
Nucleic Acid Amplification test (NAAT)performed on the
[employer] platform.
Imaging:
07/21/2023 CXR (portable): Ill-defined opacity within the left midlung suspicious for developing pneumonia. No significant pleural effusions or pneumothorax.
--- NOTE | 2023-07-24 14:34 | CM ---
Home no needs when stable.
Plan; Home no need.
[2023-07-24 15:35] VITALS: BP 158/80
[2023-07-24] MEDS: LOVENOX 40 MG SC (17:34)
[2023-07-24] MEDS: TESSALON PERLES 100 MG PO (17:37)
[2023-07-24] MEDS: MELATONIN 10 MG PO (21:00)
[2023-07-24] MEDS: PEPCID 20 MG PO (21:00)
[2023-07-24] MEDS: PRAVACHOL 20 MG PO (21:00)
[2023-07-24 23:43] VITALS: BP 165/92
[2023-07-25 03:45] VITALS: BP 131/71
[2023-07-25 07:23] VITALS: BP 149/70
[2023-07-25] MEDS: OSCAL 500 + D 500 MG PO (08:13)
[2023-07-25] MEDS: DELTASONE 30 MG PO (08:13)
[2023-07-25] MEDS: ORETIC 25 MG PO (08:13)
[2023-07-25] MEDS: VITAMIN C 500 MG PO (08:13)
[2023-07-25] MEDS: MUCINEX 600 MG PO (08:13)
[2023-07-25] MEDS: PROTONIX 40 MG PO (08:13)
[2023-07-25] MEDS: VITAMIN B-12 1000 MCG PO (08:18)
--- NOTE | 2023-07-25 12:22 | W.PN.ID1 ---
Date of Service
Date of Service: July 25, 2023
Today's Communication
Transition ceftriaxone (d#5) to oral regimen of cefdinir 300mh BID through 08/04/2023.
Assessment / Plan
H influenza bacteremia
Left midlung PNA (CAP)
Leukocytosis
Elevated procalcitonin
Myasthenia gravis; on chronic prednisone and Imuran
COPD
GERD
HTN
Dyslipidemia
Recommendations:
Transition ceftriaxone (d#5) to oral regimen of cefdinir 300mh BID through 08/04/2023.
Repeat blood cultures neg to date.
����������������������������������������������������������
Chief Complaint
-: Pneumonia and Bacteremia
Subjective / Review of Systems
Feel much improved.
Vital Signs / Physical Exam
Vital Signs
Vital Signs
Temp Pulse Resp BP Pulse Ox
98.1 F 87 18 149/70 92
07/25/23 07:23 07/25/23 08:13 07/25/23 07:23 07/25/23 08:13 07/25/23 08:15
Physical Exam
Constitutional: No Acute Distress and Comfortable
Pulmonary: Clear
Gastrointestinal: Soft, Non Tender and Non Distended
Extremities: Negative Edema
Neurological: AO x 3
Objective Data
Lab Data
Lab Results
07/24/23 08:13
07/22/23 05:26
Estimated Creat Clear 42 ml/min 07/22/23 05:26
Lactic Acid Cancelled 07/21/23 15:00
Total Bilirubin 2.0 mg/dl (0.2-1.3) H 07/21/23 10:28
AST 37 U/L (14-36) H 07/21/23 10:28
ALT 20 U/L (0-35) 07/21/23 10:28
Alkaline Phosphatase 39 U/L (38-126) 07/21/23 10:28
Most recent labs reviewed.
Micro Results:
07/21/23 11:12 Blood Culture - Preliminary
Blood/Venous No Growth in 4 days- Final report to follow
07/23/23 15:31 Blood Culture - Preliminary
Blood/Venous No Growth in 24 hours- Final report to follow
07/23/23 15:07 Blood Culture - Preliminary
Blood/Venous No Growth in 24 hours- Final report to follow
07/21/23 10:25 Blood Culture - Preliminary
Blood/Venous Haemophilus influenzae
Gram Stain - Preliminary
07/22/23 06:40 Respiratory Culture - Final
Sputum Gram Stain - Final
07/22/23 06:13 Legionella Urinary Antigen - Final
Urine Negative for Legionella pneumophila Serogroup 1 antigen.
A negative result does not rule out the possiblity of
Legionella infection due to other serogroups or species of
Legionella. Clinical correlation is recommended.
Streptococcus pneumoniae Antigen (M - Final
Negative for Streptococcus pneumoniae antigen.
A negative result does not exclude infection with
Streptococcus pneumoniae. Clinical correlation is
recommended.
07/21/23 20:44 Respiratory Syncytial Virus Culture - Final
Nasal Swab Negative for Respiratory Syncytial Virus.
A false negative result may be obtained with a specimen
collected early in the acute phase. If symptoms persist, a
new specimen should be tested.
07/21/23 10:28 Influenza Types A & B (STEPHAN) - Final
Nasal Swab Negative for Influenza A & B, NAAT
Negative results must be combined with clinical observations
and patient history.
Nucleic Acid Amplification test (NAAT)performed on the
[employer] platform.
Imaging:
07/21/2023 CXR (portable): Ill-defined opacity within the left midlung suspicious for developing pneumonia. No significant pleural effusions or pneumothorax.
Care Review
Plan reviewed with: Physician (Dr. Grullon)
[2023-07-25] MEDS: STERILE WATER FOR INJECTION 10 ML IV (12:24)
[2023-07-25] MEDS: ROCEPHIN 1000 MG IV (12:24)
--- NOTE | 2023-07-25 13:48 | W.PN.HOSP.TC ---
Today's Communication/Plan
-
dc to home
Assessment / Plan
Assessment / Plan
Assessment:
CAP
H Flu bacteremia
- repeat blood cultures cleared
- DC on cefdinir 300mg BID through 08/04/2023 per ID
- IS, cough supportive care
Hx of MG
- hold Imuran x 2 weeks while treating infection
- decrease steroids to 10mg daily maintenance dose
Essential HTN
- continue home meds
GERD
- continue home meds
Full code
More than 30 minutes spent in discharge including
Final examination of the patient
Summarizing hospital stay
Instructions for continuing care to all relevant caregivers
Preparation of discharge records, prescriptions, and referral forms
Total time spent (in minutes): 41
Anticipated Discharge: Today
Subjective/Interval History
-
Date of Service: July 25, 2023
feels good no complaints
Objective Data
-
Vital Signs:
Vital Signs
Temp Pulse Resp BP Pulse Ox
98.1 F 87 18 149/70 92
07/25/23 07:23 07/25/23 08:13 07/25/23 07:23 07/25/23 08:13 07/25/23 08:15
I&O
07/24/23 07/25/23 07/26/23
06:59 06:59 06:59
Intake Total 360 / 360 960 / 960
Balance 360 / 360 960 / 960
Physical Exam
-
General: No Apparent Distress
HEENT: Normocephalic and Atraumatic
Respiratory: Negative Wheezes
Cardiac: Regular Rhythm and S1/S2
GI: Soft
Genito-urinary: No Costovertebral Tender
Musculoskeletal: No Edema
Neuro: AO x 3
Hematologic / Lymphatic: No Lymphadenopathy
Psych: Calm
Data Reviewed
-
Total Time Spent with Patient (in minutes): 41
Labs: Labs Reviewed by me
--- NOTE | 2023-07-25 14:03 | W.DS.TRANS ---
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
-
Discharge Instructions:
Discharge Diagnosis/Procedures Community acquired pneumonia
Haemophilus influenza bacteremia
Myasthenia gravis
Steroid dependency
Diet No restrictions
Activity No restrictions
Driving Restrictions As prior to admission
Instructions:
Stand-Alone Forms:
Changes to Home Medications: No
Discharge Medications:
DC Medications w/original date entered in Tuee
pravastatin 20 mg tablet 20 mg PO HS High cholesterol 05/27/16
denosumab 60 mg/mL subcutaneous syringe (Prolia) 60 mg SC [id number] bone health 04/05/18
lutein 20 mg capsule 20 mg PO DAILY Eye condition 04/05/18
calcium carbonate 500 mg-vitamin D3 5 mcg (200 unit) tablet (Oyster Shell Calcium-Vitamin D3) 1 tab PO DAILY Supplement 07/03/18
omega 9-vru-qcs-fish oil 1,000 mg (120 mg-180 mg) capsule (Fish Oil) 1 cap PO DAILY Supplement ##0 06/29/21
ascorbic acid (vitamin C) 500 mg capsule 500 mg PO DAILY Supplement 01/06/22
clonidine 0.3 mg/24 hr weekly transdermal patch 0.3 mg transdermal WE Blood pressure 01/06/22
cyanocobalamin (vitamin B-12) 1,000 mcg sublingual tablet 1,000 mcg sublingual DAILY Supplement 01/06/22
melatonin 10 mg tablet 10 mg PO HS insomnia 01/06/22
omeprazole 20 mg capsule,delayed release 40 mg PO DAILY Gastrointestinal issue 01/06/22
hydrochlorothiazide 25 mg tablet 25 mg PO DAILY Blood pressure 01/13/22
azathioprine 50 mg tablet (Imuran) 75 mg PO HS Autoimmune Disorder 04/14/22
Lactobac no.2-Bifidobac no.1-S. thermo 112.5 billion cell capsule (Visbiome) 1 cap PO DAILY Gastrointestinal Issue 07/21/23
famotidine 40 mg tablet 40 mg PO HS Gastrointestinal Issue 07/21/23
prednisone 20 mg tablet 10 mg PO DAILY Anti-inflammatory 07/21/23
ranibizumab 0.3 mg/0.05 mL intravitreal syringe (Lucentis) 0.3 mg intravitreal Q60D Eye Condition 07/21/23
therapeutic multivitamin 1 tab PO DAILY Supplement 07/21/23
benzonatate 100 mg capsule 100 mg PO TIDPRN PRN cough #15 caps 07/24/23
cefdinir 300 mg capsule 300 mg PO BID #20 caps 07/25/23
Home Medication Changes
Pending Results: No
Total time spent discharging patient (in min): 42
[2023-07-25 14:17] VITALS: BP 139/77
--- NOTE | 2023-07-25 14:57 | CM ---
CM reviewed chart, patient plan home no needs. CM will continue to follow for discharge planning needs.
Plan; home no needs.
== END 2023-07-25 14:35 | disposition home or self-care (01) | DRG 871 ==
LOC: 4 EAST ACU 16:38
PROVIDERS: Internal Medicine; Physician Assistant; ADMITTING PHYSICIAN Internal Medicine; ATTENDING PHYSICIAN Internal Medicine; CONSULT PHYSICIAN Internal Medicine Infectious Disease; EMERGENCY PHYSICIAN Emergency Medicine; FAMILY PHYSICIAN Family Medicine
DX: A41.3 Sepsis due to Hemophilus influenzae (principal); J18.9 Pneumonia, unspecified organism; D84.821 Immunodeficiency due to drugs; E78.00 Pure hypercholesterolemia, unspecified; G70.00 Myasthenia gravis without (acute) exacerbation; I10 Essential (primary) hypertension; J43.8 Other emphysema; E87.6 Hypokalemia; J98.6 Disorders of diaphragm; L89.321 Pressure ulcer of left buttock, stage 1; L89.311 Pressure ulcer of right buttock, stage 1; K21.9 Gastro-esophageal reflux disease without esophagitis; Z96.649 Presence of unspecified artificial hip joint; Z80.3 Family history of malignant neoplasm of breast; Z82.5 Family history of asthma and other chronic lower respiratory diseases; Z79.52 Long term (current) use of systemic steroids; Z87.891 Personal history of nicotine dependence; Z11.52 Encounter for screening for COVID-19; Z79.69 Long term (current) use of other immunomodulators and immunosuppressants
CPT/HCPCS: 71045; 80048; 80053; 83605; 83735; 83880; 84145; 85025; 85027; 87040; 87077; 87185; 87205; 87449; 87502; 87807; 87811; 87899; 92610; 93005; 94640; 96365; 96367; 96375; 97116; 97162; 99285

== ENCOUNTER → 2023-09-03 10:57 | Outpatient (REF) | payer MEDICARE, BC, SELFPAY ==
[2023-09-03 15:46] LABS: ALT (SGPT) 17 U/L (0-35); AST (SGOT) 33 U/L (14-36); Alkaline Phosphatase 39 U/L (38-126); Blood Urea Nitrogen 22 mg/dl (7-17); Calcium 9.9 mg/dl (8.4-10.2); Carbon Dioxide 32 mmol/L (22-30); Chloride 97 mmol/L (98-107); Glucose 95 mg/dl (70-99); Potassium 3.7 mmol/L (3.5-5.1); Sodium 137 mmol/L (135-145); Total Bilirubin 0.6 mg/dl (0.2-1.3); Total Protein 6.2 g/dl (6.3-8.2); eGFR > 60.00
[2023-09-03 15:51] LABS: % Basophils 0.3 % (0-2); % Eosinophils 0.2 % (0-6); % Immature Granulocytes 0.5 % (0-0.5); % Monocytes 8.3 % (1.7-9.3); % Neutrophils 84.7 % (42.2-75.2); Absolute Immature Granulocytes 0.1 10^3/uL (0-0.05); Absolute Lymphocytes 0.6 10^3/uL (1.2-3.4); Absolute Monocytes 0.8 10^3/uL (0.1-0.6); Absolute Neutrophils 8.6 10^3/uL (1.4-6.5); Hematocrit 44.1 % (37.0-47.0); Hemoglobin 14.9 g/dL (12.0-16.0); Mean Corp Hgb Conc. 33.8 g/dL (33.0-37.0); Mean Corpuscular Hgb 31.4 pg (27.0-31.0); Mean Platelet Volume 10.2 fL (7.4-10.4); Nucleated Red Blood Cells % 0 %; Platelet Count 264 10^3/uL (130-400); Red Blood Cell Count 4.74 10^6/uL (4.20-5.40); Red Cell Dist. Width 14.7 % (11.5-14.5); White Blood Cell Count 10.1 10^3/uL (4.8-10.8)
== END ==
LOC: HWRAD 10:57
PROVIDERS: ATTENDING PHYSICIAN Family Medicine
DX: G70.00 Myasthenia gravis without (acute) exacerbation (principal); R73.01 Impaired fasting glucose; E78.2 Mixed hyperlipidemia; R20.2 Paresthesia of skin; R13.13 Dysphagia, pharyngeal phase; J14 Pneumonia due to Hemophilus influenzae
CPT/HCPCS: 36415; 71046; 80053; 85025

== ENCOUNTER → 2023-09-16 07:36 | Outpatient (REF) | payer MEDICARE, BC, SELFPAY | LOC: EMG 07:36 | PROVIDERS: ATTENDING PHYSICIAN Family Medicine | DX: R20.2 Paresthesia of skin (principal); R20.0 Anesthesia of skin | CPT/HCPCS: 95886; 95913 ==

== ENCOUNTER 2023-10-02 16:38 | Emergency (ER) | payer MEDICARE, BC, SELFPAY ==
[2023-10-02 16:39] VITALS: BP 181/100
--- NOTE | 2023-10-02 17:14 | ED.GENMED ---
History of Present Illness
General
Chief Complaint: Abdominal Symptoms
Time Seen by Provider: 10/02/23 17:13
History of Present Illness
History of Present Illness:
HPI: Patient presents with abdominal pain. The pain is primarily on the left side. She spoke to Dr. Tomas who wanted her to come in here for CT imaging for further evaluation. The pain is actually described 'not a pain but rather a discomfort'. She
also reports some abdominal distention. She states she has had no vomiting, diarrhea, or constipation
EXAM:
GENERAL: Well appearing in no distress
HEENT: Moist oral mucosa
CARDIOVASCULAR: No murmurs, normal heart rate, regular rhythm, No chest wall tenderness
PULMONARY: No respiratory distress, breath sounds are clear and equal
ABDOMEN: Soft with no peritoneal signs, she has mild abdominal distention without any significant tenderness
NEUROLOGIC: Excellent strength all extremities, no coordination deficits
PSYCHIATRIC: Appropriate mental status, normal insight and judgement
EXTREMITIES: Nontender, no edema, moves all extremities equally
SKIN: She has a hyperkeratotic subcentimeter papular lesion to the right mid burger with scant surrounding erythema which is mildly tender but not to the point of cellulitis
TIME OF INITIAL ENCOUNTER: 5:40 PM
NUMBER AND COMPLEXITY OF PROBLEMS ADDRESSED AT THE ENCOUNTER
� Chronic conditions affecting care: High blood pressure, hyperlipidemia, diverticular disease, myasthenia gravis
� Acute Exacerbation and/or Progression of Chronic Illness: This is an acute problem
� Differential Diagnosis includes: Diverticulitis, complicated diverticulitis, abdominal infection, bowel obstruction
AMOUNT AND/OR COMPLEXITY OF DATA TO BE REVIEWED AND ANALYZED
� I performed an independent evaluation of and my interpretation is:
EKG:
CT: CT imaging shows no acute abnormality, there is no bowel obstruction, no clear evidence of diverticulitis, some increased stool burden noted
X-rays:
Laboratory Studies: White count is normal at 6.8, potassium 3.3, CMP and lipase unremarkable
Other:
� Review of other/old records: The patient was admitted with pneumonia in July 2023
� Clinical information was obtained by an independent historian: None needed
� Prescriptions/Medications Considered but not given: Considered antibiotics for the right leg lesion however I doubt infection.
� Further testing considered but not performed:
RISK OF COMPLICATIONS AND/OR MORBIDITY OR MORTALITY OF PATIENT MANAGEMENT
� Social determinants of health affecting care: Lives at home
� Discussion with other providers:
� Escalation of care including admission/observation vs risk of discharge considered: Given patient's age with history of diverticular disease, CT imaging obtained. She appears fairly comfortable throughout her stay in the ED.
Moderate amount of stool noted�will recommend some MiraLAX as well however the patient denies any significant constipation. The patient appears very comfortable on reassessment at 8:45 PM
Past History
Past History
ED Past Medical History: COPD, HTN, Hypercholesterolemia, Other (Emphysema, Diverticulitis), Other (Cholelithiasis) and Other (Myasthenia gravis)
ED Past Surgical History: Appendectomy, Gynecological (oophorectomy) and Orthopedic
Social History
Tobacco: Former smoker
Alcohol: Daily (Wine 1-2 glass)
Drug: None
Personal:
Living: with family
Employment: Retired
Family History
Family History: Other (Father with COPD, mother with breast cancer)
Phy Exam
Physical Exam
Physical Exam:
See HPI
Course
Orders/Labs/Results
Orders:
Orders
10/02/23 17:32
CT Abd/Pel (IV only)-[facility] only Urgent
Comment:
Reason For Exam: L side pain
0.9% Sodium Chloride 500 ml [Nss] 500 ml IV BOLUS
10/02/23 17:50
Complete Blood Count/With Diff Urgent
Comprehensive Metabolic Panel Urgent
Lipase Urgent
Abnormal Lab Results
10/02/23
17:50
MCH 31.7 H pg
(27.0-31.0)
Absolute Lymphs (auto) 0.5 L 10^3/uL
(1.2-3.4)
Immature Gran % 0.6 H %
(0-0.5)
Neutrophils % 84.9 H %
(42.2-75.2)
Lymphocytes % 6.6 L %
(20.5-51.1)
Potassium 3.3 L mmol/L
(3.5-5.1)
BUN 23 H mg/dl
(7-17)
Glucose 127 H mg/dl
(70-99)
Total Protein 5.8 L g/dl
(6.3-8.2)
10/02/23 17:50
10/02/23 17:50
Vital Signs
Initial and Last Documented VS:
Initial Vital Signs
Temp Pulse Resp BP Pulse Ox
98.5 F 102 18 181/100 95
10/02/23 16:39 10/02/23 16:39 10/02/23 16:39 10/02/23 16:39 10/02/23 16:39
Last Documented Vital Signs
Temp Pulse Resp BP Pulse Ox
98.5 F 79 16 134/67 95
10/02/23 16:39 10/02/23 20:17 10/02/23 20:17 10/02/23 20:00 10/02/23 19:19
*Critical Care Note
Total Time (30-74mins, 75-104mins- exclusive of procedures): Not Applicable
ED Attending Note
-
Portions of this chart may have been created with voice recognition software.� Occasional wrong word or��sound alike� substitutions may have occurred due to the inherent limitations of voice recognition software.
Discharge Plan
Departure
Patient Disposition: Home (Routine Discharge)
Date of Disposition: 10/02/23
Time of Disposition: 20:47
Patient with high blood pressure during this ER visit?: Yes
Discharge Problem:
Abdominal pain
Instructions: Constipation, Adult (DC), Abdominal Pain, BLOOD PRESSURE
Prescriptions:
No Action
pravastatin 20 MG tablet
20 mg PO HS
lutein 20 MG capsule
20 mg PO DAILY
Prolia 60 MG/ML syringe
60 mg SC [id number]
calcium carbonate-vitamin D3 [Oyster Shell Calcium-Vit D3] 500 MG tablet
1 tab PO DAILY
omega 5-zhj-ruo-fish oil [Fish Oil] 1,000 mg (120 mg-180 mg) Capsule
1 cap PO DAILY Qty: 0
omeprazole 20 mg Capsule,Delayed Release(Dr/Ec)
40 mg PO DAILY
cyanocobalamin (vitamin B-12) 1,000 mcg Tablet, Sublingual
1,000 mcg SUBLINGUAL DAILY
melatonin 10 mg Tablet
10 mg PO HS
ascorbic acid (vitamin C) 500 mg Capsule
500 mg PO DAILY
clonidine 0.3 MG patch weekly
0.3 mg transdermal WE
Patient Comments:
07/21/2023-patient place on right stomach area
hydrochlorothiazide 25 mg tablet
25 mg PO DAILY
azathioprine [Imuran] 50 mg Tablet
75 mg PO HS
famotidine 40 mg Tablet
40 mg PO HS
therapeutic multivitamin Tablet
1 tab PO DAILY
Visbiome 112.5 billion cell Capsule
1 cap PO DAILY
Lucentis 0.3 mg/0.05 mL Syringe
0.3 mg INTRAVITREAL Q60D
prednisone 20 mg tablet
10 mg PO DAILY
benzonatate 100 mg Capsule
100 mg PO TIDPRN PRN (Reason: cough) Qty: 15 0RF
cefdinir 300 mg capsule
300 mg PO BID Qty: 20 0RF
Referrals:
Dinesh Quinones DO [Family Provider] -
Activity Restrictions/Additional Instructions:
The CAT scan did not show any signs of bowel obstruction or signs of diverticulitis. Your white blood cell count is normal. The CAT scan did show a moderate amount of stool�since she did have some distention you could consider trying a few days of
MiraLAX in addition to what you normally take. Your symptoms may improve if you have a larger bowel movement. Return here if worse.
Interventions
Interventions:
*Risk Screen - Suicide Last Done: 10/02/23 16:39
*General Assessment Last Done: 10/02/23 16:39
*Neglect/Abuse Screening Last Done: 10/02/23 16:39
*ED COVID-19 Vaccine History Last Done: 10/02/23 17:01
XI-Vmftlx-Nexdvieamk Assessment Last Done: 10/02/23 17:01
Discharge Date and Time
Print Language: IRISH
[2023-10-02 17:47] VITALS: BMI 21.9
[2023-10-02] MEDS: NSS 500 IV (17:52)
[2023-10-02 17:54] VITALS: BP 136/73
[2023-10-02 17:59] LABS: % Basophils 0.3 % (0-2); % Eosinophils 0.1 % (0-6); % Immature Granulocytes 0.6 % (0-0.5); % Lymphocytes 6.6 % (20.5-51.1); % Monocytes 7.5 % (1.7-9.3); % Neutrophils 84.9 % (42.2-75.2); Absolute Lymphocytes 0.5 10^3/uL (1.2-3.4); Absolute Monocytes 0.5 10^3/uL (0.1-0.6); Absolute Neutrophils 5.8 10^3/uL (1.4-6.5); Hematocrit 39.5 % (37.0-47.0); Mean Corp Hgb Conc. 35.4 g/dL (33.0-37.0); Mean Corpuscular Hgb 31.7 pg (27.0-31.0); Mean Corpuscular Volume 89.4 fL (81.0-99.0); Nucleated Red Blood Cells % 0 %; Platelet Count 204 10^3/uL (130-400); Red Blood Cell Count 4.42 10^6/uL (4.20-5.40); Red Cell Dist. Width 14.4 % (11.5-14.5); White Blood Cell Count 6.8 10^3/uL (4.8-10.8)
[2023-10-02 18:01] VITALS: BP 129/88
[2023-10-02 18:13] LABS: ALT (SGPT) 18 U/L (0-35); AST (SGOT) 30 U/L (14-36); Albumin 3.8 g/dl (3.5-5.0); Alkaline Phosphatase 43 U/L (38-126); Blood Urea Nitrogen 23 mg/dl (7-17); Calcium 9.4 mg/dl (8.4-10.2); Carbon Dioxide 29 mmol/L (22-30); Chloride 99 mmol/L (98-107); Estimated Creatinine Clearance 37 ml/min; Glucose 127 mg/dl (70-99); Potassium 3.3 mmol/L (3.5-5.1); Sodium 137 mmol/L (135-145); Total Bilirubin 0.5 mg/dl (0.2-1.3); Total Protein 5.8 g/dl (6.3-8.2); eGFR > 60.00
[2023-10-02 18:14] LABS: Lipase 197 U/L (23-300)
[2023-10-02 19:00] VITALS: BP 140/72
[2023-10-02 20:00] VITALS: BP 134/67
== END 2023-10-02 21:02 | disposition home or self-care (01) ==
LOC: EMR 16:38
PROVIDERS: EMERGENCY PHYSICIAN Emergency Medicine; FAMILY PHYSICIAN Family Medicine
DX: R10.9 Unspecified abdominal pain (principal); I10 Essential (primary) hypertension; Z87.891 Personal history of nicotine dependence
CPT/HCPCS: 99285; 96360; 74177; 80053; 83690; 85025; Q9967